=== PATIENT | male | born 1965 | race Caucasian/White ===

== ENCOUNTER 2025-01-06 15:17 | Emergency (ER) | payer BC ==
[~2025-01-06] VITALS: Ht 180.3 cm; Wt 94.8 kg
[2025-01-06] MEDS ORDERED: ATORVASTATIN CA40 M1 PO (16:05)
[2025-01-06] MEDS ORDERED: AMLODIPINE BESYL5 MG PO (16:05)
[2025-01-06] MEDS ORDERED: ASPIRIN ADULT L81 M1 PO (16:05)
[2025-01-06] MEDS ORDERED: LEVOTHYROXINE50 MCG PO (16:06)
[2025-01-06] MEDS ORDERED: LISINOPRIL20 MG PO (16:06)
[2025-01-06] MEDS ORDERED: ELIQUIS5 M1 PO (16:06)
[2025-01-06 16:09] LABS: BASO # 0.1 10*3/uL (0.0-0.1); BASO % 0.5 % (0.0-1.0); EOS # 0.2 10*3/uL (0.0-0.4); EOS % 1.2 % (1.0-4.0); HEMATOCRIT 39.7 % (42.0-52.0); MEAN CELL VOLUME 86.3 fl (80.0-94.0); MEAN CORPUSCULAR HGB 27.4 pg (27.0-31.0); MEAN CORPUSCULAR HGB CONC 31.7 g/dl (33.0-37.0); MEAN PLATELET VOLUME 8.6 fl (9.6-12.3); MONO # 0.6 10*3/uL (0.1-1.0); MONO % 4.8 % (3.0-9.0); NEUT # 9.6 10*3/uL (2.3-7.9); NEUT % 73.4 % (47.0-73.0); PLATELET COUNT AUTOMATED 489 10*3/uL (130-400); RED CELL DISTRI WIDTH 15.5 % (0-14.5); WHITE BLOOD COUNT 13.1 10*3/uL (4.8-10.8)
[2025-01-06 16:34] LABS: BUN 17 mg/dl (9-23); CHLORIDE 101 mmol/L (98-107); POTASSIUM 4.1 mmol/L (3.4-5.1)
[2025-01-06] MEDS ORDERED: ceFAZolin sodium/sodium chlor 10 ML IV ONE (17:00)
[2025-01-06] MEDS ORDERED: Sulfamethoxazole/Trimethopri 1 TAB TAB PO ONE (17:05)
[2025-01-06] MEDS ORDERED: SEPTDS PO (17:16)
[2025-01-06] MEDS ORDERED: CEPHALEXIN500 M1 PO (17:16)
== END 2025-01-06 17:27 | disposition home or self-care (01) ==
LOC: ED 15:17
PROVIDERS: Emergency Medicine
DX: L03.116 Cellulitis of left lower limb (principal); Z79.82 Long term (current) use of aspirin; Z79.899 Other long term (current) drug therapy

== ENCOUNTER → 2025-01-06 | Outpatient (CLI) | payer BC ==
[~2025-01-06] MED LIST: AMLODIPINE BESYL5 MG PO; ASPIRIN ADULT L81 M1 PO; ATORVASTATIN CA40 M1 PO; CEPHALEXIN500 M1 PO; ELIQUIS5 M1 PO; LEVOTHYROXINE50 MCG PO; LISINOPRIL20 MG PO; SEPTDS PO
== END | disposition home or self-care (01) ==
LOC: WOUNDCARE 13:44 → EDBD 13:44
PROVIDERS: ATTEND Nurse Practitioner
DX: I70.245 Atherosclerosis of native arteries of left leg with ulceration of other part of foot (principal); L97.525 Non-pressure chronic ulcer of other part of left foot with muscle involvement without evidence of necrosis; R60.9 Edema, unspecified; L84 Corns and callosities; I87.8 Other specified disorders of veins; I10 Essential (primary) hypertension; E78.00 Pure hypercholesterolemia, unspecified; E05.90 Thyrotoxicosis, unspecified without thyrotoxic crisis or storm; I96 Gangrene, not elsewhere classified; F17.210 Nicotine dependence, cigarettes, uncomplicated; Z98.890 Other specified postprocedural states; Z86.718 Personal history of other venous thrombosis and embolism; Z79.82 Long term (current) use of aspirin; Z79.899 Other long term (current) drug therapy

== ENCOUNTER → 2025-01-07 | Outpatient (CLI) | payer BC | LOC: WOUNDCARE 08:19 | PROVIDERS: ATTEND Nurse Practitioner Family | DX: I70.245 Atherosclerosis of native arteries of left leg with ulceration of other part of foot (principal); L97.525 Non-pressure chronic ulcer of other part of left foot with muscle involvement without evidence of necrosis; R60.9 Edema, unspecified; L84 Corns and callosities; I10 Essential (primary) hypertension; I96 Gangrene, not elsewhere classified; E05.90 Thyrotoxicosis, unspecified without thyrotoxic crisis or storm; E78.00 Pure hypercholesterolemia, unspecified; A49.9 Bacterial infection, unspecified; F17.210 Nicotine dependence, cigarettes, uncomplicated; Z98.890 Other specified postprocedural states; Z86.718 Personal history of other venous thrombosis and embolism; Z79.82 Long term (current) use of aspirin; Z79.899 Other long term (current) drug therapy ==